=== PATIENT | male | born 1995 | race Caucasian/White ===

== ENCOUNTER 2018-07-13 02:26 | Emergency (ER) | payer BC ==
[~2018-07-13] VITALS: Ht 188 cm; Wt 131.5 kg
[2018-07-13 02:30] VITALS: BP 124/90
--- NOTE | 2018-07-13 02:30 | NUR ---
PT PRESENTS TO ED WITH RIGHT KNEE PAIN AND COON PAIN. PT STATES HE WAS ICE SKATING WHEN HE SLIPPED, TWISTED RIGHT KNEE AND HIT BACK OF HEAD. COON PAIN 08/09 AND RIGHT KNEE PAIN 11/07. PT DENIES ALOC, NO N/V. NEURO CHECK INACT. A&OX4. VSS. POSITIONED IN BED FOR COMFORT. ER MD AWARE. CONTINUE TO MONITOR.
--- NOTE | 2018-07-13 02:30 | NUR ---
to bed # 4 ambulatory , report given to Gaurav El
--- NOTE | 2018-07-13 03:00 | NUR ---
Dr. Flood evaluating patient at bedside.
[2018-07-13 03:08] VITALS: BP 118/72
--- NOTE | 2018-07-13 03:08 | NUR ---
Patient discharged with v/s stable. Written and verbal after care instructions given and explained. Patient verbalized understanding. Ambulatory with steady gait. All questions addressed prior to discharge. Advised to follow up with PMD.
== END 2018-07-13 03:08 | disposition home or self-care (01) ==
LOC: MED 02:26
DX: S09.90XA Unspecified injury of head, initial encounter (principal); W18.39XA Other fall on same level, initial encounter; Y93.89 Activity, other specified; Y92.89 Other specified places as the place of occurrence of the external cause; Y99.8 Other external cause status; Z90.89 Acquired absence of other organs
CPT/HCPCS: 99281